=== PATIENT | male | born 1985 | race Caucasian/White ===

== ENCOUNTER 2017-09-03 22:19 | Emergency (ER) | payer BC, OTHER ==
[2017-09-03] MEDS ORDERED: METHYLPREDNISOLONE ACETATE 80 MG/ML VIAL IM ONE (23:07)
[2017-09-03] MEDS ORDERED: DEXAMETHASONE SOD PHOSPHATE 10 MG/ML VIAL IM ONE (23:07)
[2017-09-03] MEDS ORDERED: METHYLPREDNISOLONE ACETATE 80 MG/ML VIAL ONE (23:08)
[2017-09-03] MEDS ORDERED: DEXAMETHASONE SOD PHOSPHATE 10 MG/ML VIAL ONE (23:08)
--- NOTE | 2017-09-03 23:10 | ERNOTE ---
Integumentary HPI - General Presenting Symptoms: rash Time Seen by Provider: 09/03/17 23:02 Source: patient Exam Limitations: no limitations - Immun/Allergies/Home Medications Immunizations: IMMUNIZATION HX Immunizations Up to Date Yes History of Influenza Vaccine No Hx Pneumococcal Vaccination No Allergies/Adverse Reactions: Allergies Allergy/AdvReac Type Severity Reaction Status Date / Time cat dander Allergy Verified 09/03/17 22:36 dog dander Allergy Verified 09/03/17 22:36 Home Medications: HOME MEDICATIONS Methylprednisolone [Medrol Dosepak] 4 mg PO DAILY #21 tab.ds.pk 09/03/17 [Last Taken Unknown] Sertraline HCl [Zoloft] 100 mg PO DAILY 09/03/17 [Last Taken Unknown] - Pain Pain Score: 5 - History of Present Illness Narrative: Onset today of rash on arms trunk and neck. No shortness of breath. Possible contact with poison viridiana this Location: Reports: neck, torso, upper extremity Quality: Reports: itching, burning Severity: moderate Exposure: Reports: poison viridiana/oak Modifying Factors - (Improves): Reports: antihistamine Review of Systems - Review of Systems Constitutional: Absent: recent illness ENT: Absent: nose congestion Respiratory: Absent: shortness of breath Cardiology: Absent: chest pain Skin: Present: See HPI - Patient's Past Medical History Patient History - Medical: Anxiety Patient History - Cardiac/Respiratory: Hyperlipidemia Patient History - Cancer: No Hx of Cancer Patient History - Surgical Procedures: No surgical history Patient History - Other: None - Social History Living Situations: significant other Abuse History: No History of abuse Psych History: Hx of Anxiety, Current tx/ever been on anti-depressants or anti- anxiety meds Smoking Status: Never smoker Have you smoked in the past 12 months: No Do you dip or chew tobacco: Yes Alcohol Use: none Drug Use: none - Immunizations Immunizations Up to Date: Yes Hx Pneumococcal Vaccination: No History of Influenza Vaccine: No Physical Exam - Physical Exam General Appearance: Present: wd/wn, alert, no apparent distress Head Exam: Present: normal inspection, no evidence of injury Ears, Nose, Throat: Present: normal ENT inspection Neck: Present: normal inspection, nontender Respiratory: Present: no respiratory distress, normal breath sounds, no accessory muscle use, lungs clear Cardiovascular/Chest: Present: regular rate, rhythm Extremity Exam: Present: normal inspection, normal range of motion Neurological Exam: Present: alert, oriented, normal mood/affect Skin Exam: Present: skin rash - papules and vesicles on the arms, trunk and neck. No evidence of secondary infection. ED Progress - Vital Signs Vital Signs: Vital Signs 09/03/17 22:29 Temperature 36.6 C Pulse Rate 82 Respiratory 16 Rate Blood Pressure 139/86 O2 Sat by Pulse 97 Oximetry - Progress/Reassessment Chief Complaint: Rash Departure Clinical Impression: Contact dermatitis and eczema due to plant - Departure Disposition: Home self-care Condition: Good Instructions: Poison Viridiana Dermatitis Referrals: Analia Yadav FNP [Primary Care Provider] - Prescriptions: Methylprednisolone [Medrol Dosepak] 4 mg PO DAILY #21 tab.ds.pk
[2017-09-03 23:21] VITALS: BP 118/70
== END 2017-09-03 23:19 | disposition home or self-care (01) ==
LOC: ER 22:19
DX: L24.7 Irritant contact dermatitis due to plants, except food (principal); Z72.0 Tobacco use